=== PATIENT | male | born 1970 | race African-American/Black ===

== ENCOUNTER 2021-06-15 08:31 | Emergency (ER) | payer BC, OTHER ==
[2021-06-15 08:42] VITALS: BP 123/81; PULSE 84; TEMP 98.1; BMI 26.6
[2021-06-18 13:07] LABS: SARS-CoV-2 NAA Detected (Not Detected)
== END 2021-06-15 09:49 | disposition home or self-care (01) ==
LOC: JER 08:31
DX: J06.9 Acute upper respiratory infection, unspecified (principal); R51.9 Headache, unspecified; R05.1 Acute cough
CPT/HCPCS: 87070; 87804; 99283-25; C9803-CS; U0003; U0005

== ENCOUNTER 2021-06-19 14:30 | Emergency (ER) | payer BC ==
[2021-06-19 15:13] VITALS: BP 144/84; PULSE 87; TEMP 98.3; BMI 22.6
[2021-06-19] MEDS ORDERED: ONDANSETRON *ODT* 4 MG TABLET SL ONE (16:20)
[2021-06-19] MEDS ORDERED: ONDANSETRON *ODT* 4 MG TABLET ONE (17:05)
== END 2021-06-19 18:18 | disposition home or self-care (01) ==
LOC: JER 14:30
DX: U07.1 COVID-19 (principal)
CPT/HCPCS: 99283-25; Q0162